=== PATIENT | male | born 1935 | race Caucasian/White ===

== ENCOUNTER 2017-08-11 15:45 | Emergency (ER) | payer MEDICARE, OTHER ==
[~2017-08-11] VITALS: Ht 165.1 cm; Wt 95.0 kg
[2017-08-11 17:47] LABS: GLUCOSE,POINT OF CARE 162 MG/DL (70-110)
[2017-08-11] MEDS ORDERED: BENA20 PO (18:02)
[2017-08-11] MEDS ORDERED: MONT10TA21 PO (18:02)
[2017-08-11] MEDS ORDERED: LACT1TAB11 PO (18:02)
[2017-08-11] MEDS ORDERED: INSNOV SQ (18:02)
[2017-08-11] MEDS ORDERED: FOLI1CAP2 PO (18:02)
[2017-08-11] MEDS ORDERED: FURO80 PO (18:02)
[2017-08-11] MEDS ORDERED: ESOM20CA31 PO (18:02)
[2017-08-11] MEDS ORDERED: SITA50 PO (18:02)
[2017-08-11] MEDS ORDERED: INSLAN SQ (18:02)
[2017-08-11] MEDS ORDERED: COLL30OI TP (18:02)
[2017-08-11] MEDS ORDERED: VITAD1000 PO (18:02)
[2017-08-11] MEDS ORDERED: OXYB5XL PO (18:02)
[2017-08-11] MEDS ORDERED: CYAN500 PO (18:02)
[2017-08-11] MEDS ORDERED: LORA10TA7 PO (18:02)
[2017-08-11] MEDS ORDERED: AMLO-512 PO (18:02)
[2017-08-11] MEDS ORDERED: SEVEC800 PO (18:02)
[2017-08-11] MEDS ORDERED: ACETAMINOPHEN 325 MG TABLET PO ONE (18:30)
[2017-08-11] MEDS ORDERED: CEPHALEXIN MONOHYDRATE 500 MG CAPSULE PO ONE (18:30)
[2017-08-11] MEDS ORDERED: POVIDONE-IODINE 10% 15 ML SOLUTION UD TP ONE (18:30)
[2017-08-11 19:56] VITALS: BP 141/58
== END 2017-08-11 20:17 | disposition home or self-care (01) ==
LOC: EMS 15:48
DX: L02.31 Cutaneous abscess of buttock (principal); I13.2 Hypertensive heart and chronic kidney disease with heart failure and with stage 5 chronic kidney disease, or end stage renal disease; E11.22 Type 2 diabetes mellitus with diabetic chronic kidney disease; N18.6 End stage renal disease; I50.9 Heart failure, unspecified; K21.9 Gastro-esophageal reflux disease without esophagitis; Z99.2 Dependence on renal dialysis; Z79.4 Long term (current) use of insulin
CPT/HCPCS: 82962; 99284